=== PATIENT | female | born 2000 | race Caucasian/White ===

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

== ENCOUNTER 2022-01-13 10:38 | Emergency (ER) | payer OTHER, SELFPAY ==
--- NOTE | ~2022-01-13 | XR_ITS ---
XR toe 3rd RT min 2V DATE: 01/13/2022 11:09 INDICATION: Stubbed third toe yesterday. Pain. TECHNIQUE: 4 views of third toe COMPARISON: 02/26/2017 right foot FINDINGS: Subtle lucency at the base of the distal phalanx suggests a nondisplaced fracture. No other fracture or dislocation is detected. IMPRESSION: Subtle nondisplaced fracture of the base of the distal phalanx of third digit Reviewed, dictated and finalized at location B. IMPRESSION: Subtle nondisplaced fracture of the base of the distal phalanx of t hird digit
[2022-01-13 10:55] VITALS: BP 116/54; PULSE 70; RESP 18; TEMP 36.8; O2SAT 99
--- NOTE | 2022-01-13 11:19 | ED.LOWEXIN ---
HPI - Extremity Injury (Lower) General Chief Complaint: Extremity Injury, Lower Stated Complaint: Rt Foot Pain Time Seen by Provider: 01/13/22 11:19 History of Present Illness HPI Narrative: Gaby Rodriguez is a 21 yo female with no PMH who coms with a painful, bruised R toe after stubbing it last night on a piece of ottoman Related Data Home Medications Medication Instructions Recorded Confirmed No Home Medications 01/13/22 01/13/22 Allergies Allergy/AdvReac Type Severity Reaction Status Date / Time No Known Allergies Allergy Verified 01/13/22 10:54 Review of Systems Review of Systems: CONSTITUTIONAL: Denies fever, chills, sweats. EYES: Denies visual changes, redness, discharge. ENT: Denies rhinorrhea, congestion, sore throat, otalgia. CARDIOVASCULAR: Denies chest pain, palpitations, edema. RESPIRATORY: Denies dyspnea, wheezing, cough GASTROINTESTINAL: Denies abdominal pain, nausea, vomiting, diarrhea. GENITOURINARY: Denies dysuria, hematuria, abnormal discharge SKIN: Denies rash or itching. NEUROLOGIC: Denies numbness, or focal weakness. PSYCHIATRIC: Denies anxiety or depression. Right foot pain Exam Narrative: GENERAL: This is a well-nourished, well-developed patient, in mild distress. HEAD: normocephalic, atraumatic. EYES:. Sclera clear/white. Vision is grossly intact. EARS: External ears normal. Hearing grossly intact. NOSE: External nose normal without nasal discharge, nares without redness, no rhinorrhea. THROAT: Mucous membranes moist, NECK: Neck supple, non-tender CARDIOVASCULAR: Regular rate and rhythm without murmurs, gallops, or rubs. RESPIRATORY: Clear to auscultation. Breath sounds equal bilaterally. No wheezes, rales, or rhonchi. GASTROINTESTINAL: Not done SKIN: warm, intact with no suspicious lesions or rash, good texture and turgor. NEURO: awake, alert, and oriented to person, place and time. There were no obvious focal neurologic abnormalities. 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 college on Tuesday Use Tylenol ice and elevation Level of Care: Express Care Visit Vital Signs Vital signs: Vital Signs Temperature 98.3 F 01/13/22 10:55 Pulse Rate 70 01/13/22 10:55 Respiratory Rate 18 01/13/22 10:55 Blood Pressure 116/54 L 01/13/22 10:55 Pulse Oximetry 99 01/13/22 10:55 Oxygen Delivery Room Air 01/13/22 10:55 Temperature 98.3 F 01/13/22 10:55 Pulse Rate 70 01/13/22 10:55 Respiratory Rate 18 01/13/22 10:55 Blood Pressure 116/54 L 01/13/22 10:55 Pulse Oximetry 99 01/13/22 10:55 Oxygen Delivery Room Air 01/13/22 10:55 MDM - Extremity Injury (Lower) Differential Diagnosis Differential diagnosis: Likely other (Toe strain versus toe fracture versus foot fracture) Critical Care Time Critical Care Time Critical Care Time: No Discharge Plan Discharge Clinical Impression: Closed fracture of toe Qualifiers: Encounter type: initial encounter Toe: lesser toe Phalanx: distal Fracture alignment: nondisplaced Laterality: right Qualified Code(s): S92.534A - Nondisplaced fracture of distal phalanx of right lesser toe(s), initial encounter for closed fracture Patient Disposition: Home, Self-Care Condition: Stable Instructions: Toe Fracture (ED) Prescriptions: No Action No Home Medications Follow-up/Referrals: PHYSICIAN,GAMBLING BROKER [Primary Care Provider] - Stand Alone Forms: Work/School Release IP Time of Disposition: 11:33
== END 2022-01-13 11:40 | disposition home or self-care (01) ==
PROVIDERS: Emergency Provider Nurse Practitioner
DX: S92.534A Nondisplaced fracture of distal phalanx of right lesser toe(s), initial encounter for closed fracture (principal); W22.03XA Walked into furniture, initial encounter
CPT/HCPCS: 73660; 99214; G0463